=== PATIENT | female | born 1985 | race Caucasian/White ===

== ENCOUNTER 2019-12-21 22:53 | Emergency (ER) | payer BC ==
[~2019-12-21] VITALS: Ht 154.9 cm; Wt 56.7 kg
[2019-12-21 22:57] VITALS: BP_SYST 143
--- NOTE | 2019-12-21 23:08 | NUR ---
Patient to ER bed 7 to gown for evaluation. Side rails up. Report given to
--- NOTE | 2019-12-21 23:10 | NUR ---
Pt brought in by self. Pt awake, alert, oriented x4. Pt states that she was doing dishes, a glass dish slipped from her and and broke. Pt states she tried to grab it while it fell and accidentally cut her L index and ring fingers and R wrist in the process. Bleeding is well controlled. Pt denies KO. Denies n/v/d shortness of breath or any other medical complaint at this time. Pt states status of TDAP is unknown and requested a booster. Pt resting in ED bed comfortably, no acute distress.
--- NOTE | 2019-12-21 23:10 | NUR ---
ER at bedside examining patient.
--- NOTE | 2019-12-21 23:30 | NUR ---
Bedside performing Laceration repair
[2019-12-21] MEDS ORDERED: LIDOCAINE 1%, 20 ML MDV 20 ML ONE (23:42)
[2019-12-22] MEDS: LIDOCAINE 1% 10 MG/ML, 20 ML MDV SUBCUT ONE (00:37)
[2019-12-22] MEDS: DIPH-TET-PERTUS Vaccine 0.5 ML VIAL (ADACEL) I.M. ONE (00:37)
[2019-12-22] MEDS: BACITRACIN 1 GM OINT TP ONE (00:38)
[2019-12-22 00:40] VITALS: BP_SYST 143
--- NOTE | 2019-12-22 00:40 | NUR ---
Patient given written and verbal discharge instructions and verbalizes understanding. ER MD discussed with patient the results and treatment provided. Patient in stable condition. ID arm band removed. No IV Patient educated on pain management and to follow up with PMD for wound check and removal of sutures. Pain Scale 1/10. Opportunity for questions provided and answered. Medication side effect fact sheet provided.
== END 2019-12-22 00:40 | disposition home or self-care (01) ==
LOC: SED 22:53
DX: S61.217A Laceration without foreign body of left little finger without damage to nail, initial encounter (principal); S61.215A Laceration without foreign body of left ring finger without damage to nail, initial encounter; E07.9 Disorder of thyroid, unspecified; W25.XXXA Contact with sharp glass, initial encounter; Y93.89 Activity, other specified; Y92.89 Other specified places as the place of occurrence of the external cause; Y99.8 Other external cause status
CPT/HCPCS: 12001; 90471; 90715; 99283; J2001